=== PATIENT | male | born 1965 | race Caucasian/White ===

== ENCOUNTER → 2016-10-04 | Outpatient (CLI) | payer OTHER | LOC: KOH-I 14:19 | DX: K59.00 Constipation, unspecified (principal); R63.4 Abnormal weight loss; K63.89 Other specified diseases of intestine | CPT/HCPCS: 74000 ==

== ENCOUNTER 2016-10-06 07:00 | Emergency (ER) | payer OTHER ==
[2016-10-06 08:06] LABS: HEMOGLOBIN 15.8 gm/dl (14.0-17.5); RED BLOOD COUNT 5.13 M/UL (4.20-5.50); WHITE BLOOD COUNT 7.3 K/UL (4.5-11.0)
[2016-10-06 08:25] LABS: BUN/CREATININE RATIO 9 (0-10)
== END 2016-10-06 13:20 ==
LOC: ER1 07:00
PROVIDERS: Specialist/Technologist Athletic Trainer
DX: C19 Malignant neoplasm of rectosigmoid junction (principal); K92.2 Gastrointestinal hemorrhage, unspecified; E80.6 Other disorders of bilirubin metabolism; R73.9 Hyperglycemia, unspecified; F17.200 Nicotine dependence, unspecified, uncomplicated
CPT/HCPCS: 36415; 80053; 82272; 83605; 85025; 96360; 96361; 99285; J7030; J7050; Q9962